=== PATIENT | male | born 1960 | race Hispanic/Latino ===

== ENCOUNTER 2017-12-08 14:48 | Observation (INO) | payer SELFPAY ==
[2017-12-08 15:31] LABS: #Basophils 0.1 thou/uL (0.0-0.2); #Lymphocytes 1.8 thou/uL (1.20-3.40); #Monocytes 0.8 thou/uL (0.11-0.59); #Neutrophils 11.4 thou/uL (1.40-6.50); %Basophils 0.5 % (0.0-1.0); %Eosinophils 0.3 % (0.0-10.0); %Lymphocytes 12.6 % (21.0-51.0); %Monocytes 5.4 % (0.0-10.0); %Neutrophils 81.1 % (42.0-75.0); Hemoglobin 16.5 g/dL (14.0-18.0); Mean Corpuscular HGB CONC 35.4 g/dL (32.0-36.0); Mean Corpuscular Hemoglobin 30.6 pg (27.0-31.0); Mean Corpuscular Volume 86.6 fL (78.0-98.0); Mean Platelet Volume 8.6 fL (7.4-10.4); Platelet Count 225 thou/uL (130-400); RBC Distribution Width 12.5 % (11.5-14.5); Red Blood Cell (RBC) Count 5.38 mill/uL (4.70-6.10)
[2017-12-08] MEDS ORDERED: Glycopyrrolate 0.2 MG/ML 5 ML SYRINGE ONE (15:38)
[2017-12-08] MEDS ORDERED: Dexamethasone 20 MG/5 ML VIAL ONE (15:38)
[2017-12-08] MEDS ORDERED: Ondansetron HCl/PF 4 MG/2 ML Vial ONE ×2 (15:38→16:37)
[2017-12-08] MEDS ORDERED: PROPOFOL 200 MG/20 ML VIAL ONE (15:38)
[2017-12-08] MEDS ORDERED: Lidocaine 1% PF 5 ML VIAL ONE (15:38)
--- NOTE | 2017-12-08 15:50 | RAD ---
AP VIEW OF THE CHEST: INDICATION: High-risk complaint with chest pain. IMPRESSION: No acute cardiopulmonary abnormality. COMMENTS: No comparisons are available. The lungs are clear. No acute osseous abnormality is evident. Heart size is within normal limits. POS: [facility]
[2017-12-08 15:55] LABS: ALT (SGPT) 23 U/L (8-55); AST (SGOT) 16 U/L (5-34); Albumin 4.4 g/dL (3.5-5.0); Alkaline Phosphatase 62 U/L (40-150); Anion Gap 14 mmol/L (10-20); BUN (Urea Nitrogen) 12 mg/dL (8.4-25.7); Bilirubin, Total 0.4 mg/dL (0.2-1.2); CK (CPK) 75 U/L (30-200); Calc. Creatinine Clearance 0 mL/min (70-130); Calcium 9.5 mg/dL (7.8-10.44); Carbon Dioxide 24 mmol/L (22-29); Chloride 105 mmol/L (98-107); Estimated GFR-MDRD 77; Globulin 3.1 g/dL (2.4-3.5); Glucose 213 mg/dL (70-105); Potassium 3.8 mmol/L (3.5-5.1); Protein, Total 7.5 g/dL (6.0-8.3); Sodium 139 mmol/L (136-145)
[2017-12-08 15:58] LABS: CKMB 0.7 ng/mL (0-6.6); Troponin I Less than 0.010 ng/mL (< 0.028)
--- NOTE | 2017-12-08 18:15 | ULT ---
RIGHT UPPER QUADRANT ULTRASOUND: History: Abdominal pain. FINDINGS: The liver is mildly enlarged measuring 19 - 20 cm. The liver is very heterogeneous. There is no focal mass seen although an infiltrate process in the liver cannot be excluded. At least one shadowing gallstone is seen in the gallbladder neck. There is evidence of echogenic slud ge layering in the gallbladder. No evidence of gallbladder wall thickening or edema. The common duct is normal caliber at 3 mm. Visualized pancreas is unremarkable although the pancreatic tail is obscur ed. The right kidney is imaged and appears unremarkable. IMPRESSION: 1. Hepatomegaly with very heterogeneous liver. Liver lesions and infiltrative process in the liver ar e not excluded on this study. Chronic liver function test. 2. Cholelithiasis. POS: [facility]
[2017-12-08] MEDS ORDERED: Ketorolac Tromethamine 30 MG/ML VIAL ONE (19:38)
[2017-12-08] MEDS ORDERED: Bupivacaine/Epinephrine 0.25% 30 ML VIAL ONE (20:53)
[2017-12-08] MEDS ORDERED: Fentanyl 100 MCG/2 ML VIAL ONE ×4 (21:01→23:50)
--- NOTE | 2017-12-08 21:12 | HP ---
DATE OF ADMISSION: 12/08/2017 HISTORY OF PRESENT ILLNESS: Ms. Landry is a 56-year-old man who presented today with a compl aint of 10/10 postprandial right upper quadrant to epigastric abdominal pain. The pain started appro ximately 0700 hours following breakfast consisting of some fried egg and beans. Pain is described as sharp transiently radiating to the back. The pain was associated with multiple episodes of nausea a nd nonbilious emesis. The patient reported some chills, but no fever. He denies any change in his b [employer] habits. PAST MEDICAL HISTORY: Pertinent for type 2 diabetes mellitus. PAST SURGICAL HISTORY: Pertinent for left inguinal herniorrhaphy. SOCIAL HISTORY: He lives independently. Patient is employed as light truck driver in the [employer] . He smokes 1 pack of cigarettes per day for over 20 years. He denies any ethanol or illicit drug a buse. FAMILY HISTORY: Notable for brother with diabetes mellitus and hypertension. His mother from c omplications of liver carcinoma. He denies any family history of heart disease. PREHOSPITAL MEDICATIONS: Metformin 1000 mg p.o. b.i.d. ALLERGIES: Patient denies any known drug allergies. REVIEW OF SYSTEMS: A 10-point review of systems is essentially unremarkable except for as stated in past medical history and chief complaint. PHYSICAL EXAMINATION: GENERAL: This reveals a 56-year-old normally developed man who is otherwise coherent and interactive and appears stated age. The patient is alert and oriented x3, appears to be in severe acute distres s secondary to abdominal pain. VITAL SIGNS: Includes blood pressure 135/80, pulse is 85, respiratory rate is 22, oxygen saturation 97% on room air. HEENT: Reveals normocephalic and atraumatic. Pupils are equal, round, and reactive to light and acc ommodation. Extraocular muscles are intact bilaterally. No sclerae icterus is present. Oral mucosa is pink and moist. No lesions are noted. NECK: Supple. No palpable lymphadenopathy or thyromegaly present. HEART: Reveals regular rate and rhythm, no murmurs or gallops auscultated. LUNGS: Clear to auscultation bilaterally. Breathing regular and unlabored. ABDOMEN: Soft and obese. He has right upper quadrant tenderness to palpation with a positive Jaimes sign. Liver and spleen are otherwise nonpalpable below costal margin. EXTREMITIES: Reveals 2+ radial and pedal pulses bilaterally. No ankle edema is present. NEUROLOGIC: Reveals no focal deficits present. PERTINENT LABORATORY DATA: Include a CBC with 14,000 white blood cells, hemoglobin and hematocrit 16 .5 and 46.6 respectively. Platelet count is 225,000. Metabolic profile: Sodium 139, potassium 3.8, chloride is 105, bicarbonate is 24, BUN 12, creatinine is 1.01, glucose is 213. Total bilirubin 0.4 , AST and ALT 16 and 23 respectively. Serum lipase is normal at 23. I have personally reviewed the abdominal ultrasound, which reveals hepatomegaly with gallbladder and intraluminal gallstones. There is a solitary stone impacted in gallbladder neck. No pericholecystic fluid or gallbladder wall thickening is seen. Common bile duct is normal in diameter for this patie nt's age at 3 mm. IMPRESSION: 1. Acute cholecystitis with cholelithiasis. 2. Hepatomegaly and abnormal heterogeneous echogenicity of the liver. 3. Given this patient's strong family history of liver carcinoma, we will obtain further image studi es and consider percutaneous liver biopsy if there is any suspicious presentation preoperatively. Above findings and plan has been discussed with the patient who indicates understanding of informatio n given. I have answered his questions.
[2017-12-08] MEDS ORDERED: Promethazine HCl 25 MG/ML VIAL SLOW IVP PRN (22:24)
[2017-12-08] MEDS ORDERED: Promethazine HCl 25 MG/ML VIAL IM PRN ×2 (22:24→22:57)
[2017-12-08] MEDS ORDERED: Meperidine HCl/PF 25 MG/ML VIAL SLOW IVP PRN (22:24)
[2017-12-08] MEDS ORDERED: Ondansetron HCl/PF 4 MG/2 ML Vial IVP PRN ×2 (22:24→22:57)
[2017-12-08] MEDS ORDERED: Dextrose 5% in Water 1,000 ML IV PRN (22:57)
[2017-12-08] MEDS ORDERED: Insulin Regular 300 UNITS/3 ML VIAL SC PRN (22:57)
[2017-12-08] MEDS ORDERED: Ketorolac Tromethamine 30 MG/ML VIAL IVP PRN (22:57)
[2017-12-08] MEDS ORDERED: Dextrose 50% Abboject 50 ML SYRINGE SLOW IVP PRN (22:57)
[2017-12-08] MEDS ORDERED: Calcium Carbonate 500 MG ChewTAB PO PRN (22:57)
[2017-12-08] MEDS ORDERED: Mag-Al 1200 mg/1200 mg/30 ML UDCUP PO PRN (22:57)
[2017-12-08] MEDS ORDERED: hydrALAZINE 20 MG/ML VIAL SLOW IVP PRN (22:57)
[2017-12-08] MEDS ORDERED: traMADol HCl 50 MG TAB PO PRN (23:03)
[2017-12-09] MEDS: Acetaminophen 500 MG TAB PO SCH ×4 (00:41→19:19)
[2017-12-09] MEDS: traMADol HCl 50 MG TAB PO PRN ×3 (00:41→21:58)
[2017-12-09 00:51] VITALS: BMI 34.7
--- NOTE | 2017-12-09 03:10 | OP ---
DATE OF OPERATION: 12/08/2017 PREOPERATIVE DIAGNOSIS: Acute cholecystitis with cholelithiasis. POSTOPERATIVE DIAGNOSIS: Acute cholecystitis with cholelithiasis. OPERATION PERFORMED: Laparoscopic cholecystectomy. SURGEON: Dr. Raphael Reynolds. ANESTHESIA: General endotracheal. ESTIMATED BLOOD LOSS: 10 mL FLUIDS GIVEN: 1300 mL crystalloids. SPONGE AND INSTRUMENT COUNT: Certified as correct x2. COMPLICATIONS: None apparent at the time of operation. INDICATIONS FOR PROCEDURE: A 56-year-old man presented with recurrent epigastric right uppe r quadrant abdominal pain. Clinical and radiographic examination was consistent with acute cholecyst itis with cholelithiasis for which patient was brought to the operating room for cholecystectomy. Findings are consistent with markedly dilated gallbladder in the usual anatomic location partially en cased by omental adhesions. DESCRIPTION OF PROCEDURE: Informed consent was obtained from the patient who was brought to the oper ating room and placed in supine position. Following general anesthesia, abdomen was sterilely preppe d and draped in usual fashion. The skin below the umbilicus was infiltrated with 0.25% Marcaine with epinephrine. A small curvilinear infraumbilical incision was made using an 11 scalpel. Umbilical s talk grasped with Shonna's and elevated. Veress needle was inserted through this incision and placed in the peritoneal cavity through which the abdomen was insufflated with 3 liters of CO2 gas. Intraa bdominal pressure 1 mmHg. Following abdominal insufflation, Veress needle was removed, 5 mm trocar i ntroduced using the Visiport under laparoscopy. Laparoscopy further revealed gallbladder in the usua l anatomic location partially encased by omental adhesions. Under laparoscopy, a 12-mm epigastric an d two 5 mm right lateral subcostal ports were placed after the overlying skin was infiltrated with 0. 25% Marcaine with epinephrine and appropriate incision was made. The patient was placed in the rever se Trendelenburg position, rotated to his left. I introduced the [place] dissector with cautery to take down omental adhesions from the gallbladder. I attempted to grasp the gallbladder with a Dropmysite ge grasper from the right lateral subcostal port. The gallbladder was markedly distended and torqued . I then used Endo suction catheter with cautery to perform a cholecystostomy at the dome of the gal lbladder, evacuating a large amount of white bile. Gochikuru grasper was then used to grasp the fundus of the gallbladder which was elevated cephalad. S econd grasper was introduced through the right medial subcostal port was applied at the Milian's zina ch which was retracted laterally. Cystic duct was carefully dissected free from surrounding structur es and divided between clips. Two clips applied proximally and one clip at the junction of the cysti c duct and gallbladder. The cystic artery divided between clips in a similar fashion. Gallbladder i tself was removed from the liver bed using cautery. Gallbladder was delivered of the abdominal cavit y using an EndoCatch. Operative site was irrigated with saline, noting good hemostasis in place. Fa scia of the epigastric port was closed using 0 Vicryl suture and Endo closure device under laparoscop y. Abdomen was desufflated. All ports and instruments removed and accounted for. Skin incisions cl osed using 4-0 Monocryl suture in subcuticular fashion. Laparoscopy reveals no visible abnormality w ith respect to the liver as previously described in the abdominal ultrasound. Therefore, I saw no re ason to obtain biopsy at this time. Pictures of the liver were taken and forms part of this patient' s medical records. Patient tolerated the operation without any apparent complication and was returne d to recovery room in satisfactory condition.
[2017-12-09] MEDS: Lactated Ringer's 1,000 ML IV SCH ×3 (04:04→19:27)
[2017-12-09 06:11] LABS: ALT (SGPT) 94 U/L (8-55); AST (SGOT) 71 U/L (5-34); Albumin 3.9 g/dL (3.5-5.0); Alkaline Phosphatase 58 U/L (40-150); Bilirubin, Direct 0.2 mg/dL (0.1-0.3); Bilirubin, Total 0.5 mg/dL (0.2-1.2); Protein, Total 6.5 g/dL (6.0-8.3)
[2017-12-09] MEDS: Famotidine 20 MG TAB PO SCH ×2 (08:52→21:57)
[2017-12-09] MEDS ORDERED: Famotidine/PF 20 mg/2ml Vial SLOW IVP SCH (09:00)
[2017-12-09] MEDS ORDERED: Prevnar 13-Val Conj/PF 0.5 ML SYRINGE IM ONE (09:00)
[2017-12-09] MEDS: Enoxaparin Sodium 40 MG/0.4 ML SYRINGE SC SCH (10:10)
[2017-12-09] MEDS ORDERED: ISOVUE-370 76%-LOCM 1 ML ONE (14:42)
--- NOTE | 2017-12-09 19:07 | CT ---
CT ABDOMEN WITH AND WITHOUT IV CONTRAST: 12/09/2017 HISTORY: Abnormal liver function tests. Abnormal previous liver ultrasound examination. Hepatomegaly. COMPARISON: Right upper quadrant ultrasound on 12/08/2017. FINDINGS: There are linear and parenchymal changes at each lung base, probably related to bibasilar atelectasis . There is stranding of the subcutaneous soft tissues in the right upper quadrant and at the midline wi th subcutaneous gas present, as well as a few scattered punctate foci of free intraperitoneal gas. T hese findings are likely related to recent post cholecystectomy changes. Surgical clips are seen in the gallbladder fossa. There is no fluid or fluid collection seen in the gallbladder fossa. The liver demonstrates diffuse diminished attenuation, which has the appearance most suggestive of di ffuse fatty infiltration, with mild focal fatty sparing adjacent to the gallbladder fossa. There is no focal hepatic mass seen, and the liver does not demonstrate heterogeneity on this exam. The liver is enlarged, measuring 21 cm in craniocaudal dimension. The spleen, pancreas, and bilateral adrenal glands demonstrate a normal CT appearance. Subcentimeter , eht-lafwd-ne-characterize, hypodense lesions are seen at the inferior pole of each kidney. The abdominal aorta is normal in caliber. No free fluid, fluid collection, or lymphadenopathy is seen in the abdomen or pelvis. Mild degenerative changes are seen involving the lower lumbar spine. There are bilateral pars defect s at L5 with grade 1 anterolisthesis of L5 on S1. IMPRESSION: 1. Evidence of cholecystectomy. There are punctate foci of gas seen within the abdomen, likely attr ibutable to recent cholecystectomy. Clinical correlation is recommended. 2. Hepatomegaly with diffuse fatty infiltration of the liver and focal fatty sparing adjacent to the gallbladder fossa. 3. Bibasilar atelectasis. 4. Subcentimeter, mif-woueg-gq-characterize, hypodense lesions in each kidney. 5. No fluid or fluid collection is seen in the gallbladder fossa. POS: [facility]
[2017-12-10] MEDS: Acetaminophen 500 MG TAB PO SCH ×4 (00:41→17:22)
--- NOTE | 2017-12-10 04:32 | PRG ---
DATE OF SERVICE: 12/09/2017 SUBJECTIVE: The patient is hospital day #2, postop day #1, status post laparoscopic cholecystectomy. The patient tolerated this procedure well. Of note, the ultrasound showed a questionable lesion on his liver though under laparoscope, the liver appeared unremarkable. Overnight, the patient had no issues. He tolerated a diet and his pain was controlled. PHYSICAL EXAMINATION: VITAL SIGNS: Temperature is 97.7, heart rate 98, blood pressure 112/76, respirations 18, oxygen satu ration 96% on room air. GENERAL: The patient is resting comfortably in bed, appears in no distress. HEENT: Unremarkable. LUNGS: Clear to auscultation bilaterally with good inspiratory and expiratory effort. HEART: Regular rate and rhythm. ABDOMEN: Soft, flat with minimal tenderness. His surgical sites are clean, dry, and intact. EXTREMITIES: Neurovascularly intact x4. LABORATORY DATA: This morning show a total bilirubin of 0.5, direct bilirubin 0.2, AST 71, ALT 94, a lkaline phosphatase 58. There are no radiographs to review this morning. ASSESSMENT AND PLAN: 1. Status post acute cholecystitis with cholelithiasis, status post laparoscopic cholecystectomy. 2. Hepatomegaly and abnormal heterogeneous echogenicity of the liver. The plan will be to continue supportive care. We will order AFP and CEA. We will consult GI to eval uate the patient and discussed further workup to include possible CT evaluation of his liver and othe r tests as indicated by GI. The evaluation and examination were done with Dr. Reynolds this morning and he discussed this case with Dr. Sepulveda.
[2017-12-10 05:14] LABS: Prothrombin Time 13.1 SEC (12.0-14.7)
[2017-12-10 05:35] LABS: Cardiac Risk 2.9 (Less than 4.5)
[2017-12-10 05:46] LABS: Ferritin 316.89 ng/mL (22-322)
[2017-12-10 06:00] LABS: HBCM Index 0.06 S/CO (0-0.79); HBSAg Index 0.18 S/CO (0-0.99); Hep A IgM AB Non-Reactive (NonReactive); Hep A IgM S/CO 0.19 S/CO (0-0.79); Hep B Surf Ag Non-Reactive S/CO (NonReactive); Hep C IgG Ab Non-Reactive (NonReactive); Hep C Index 0.14 S/CO (0-0.79); Hepatitis B Core IGM Abs Non-Reactive (NonReactive)
[2017-12-10] MEDS: Lactated Ringer's 1,000 ML IV SCH ×2 (06:50→08:29)
[2017-12-10] MEDS: Famotidine 20 MG TAB PO SCH (08:28)
--- NOTE | 2017-12-10 09:46 | CON ---
DATE OF CONSULTATION: 12/09/2017 REASON FOR CONSULTATION: Hepatomegaly. HISTORY OF PRESENT ILLNESS: Mr. Landry is a 56-year-old gentleman who presented to the emergency room yesterday with complaints of some chest pain, which began after eating eggs for breakfast, ultimatel y came to emergency room with some gallstones and white count of 14,000. His AST and ALT were elevat ed at 71 and 94. His other liver enzymes were normal and lipase was normal. Glucose is 213. Ultras ound revealed hepatomegaly and heterogeneous appearing liver. His gallbladder was removed. General Surgery consult to me after surgery to evaluate him for hepatomegaly as they found that the history h is mother had cancer that started in the liver and now moved to allover of his body. The patient is not aware of any other family history of liver disease or any family history of hepatitis. The patie nt did drink heavy alcohol until about 20 years ago and states he does not drank since then. Present ly, complains of no pain or symptoms. He reports he is going home today and he will go back to the [facility] where he lives. PAST MEDICAL HISTORY: Type 2 diabetes, high cholesterol, and hypertension. PAST SURGICAL HISTORY: Left inguinal hernia repair, cholecystectomy today. 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 Oswaldo sandhu smokes a pack of cigarettes for over 20 years. Denies any alcohol use presently or drug abuse. De nies any prior history of IV drug use. FAMILY HISTORY: His brother had diabetes and hypertension. His mother from complications of a cancer in liver. It is unclear if this is a primary cancer from talking to him. It does not seem to be underlying liver disease. MEDICATIONS AT HOME: Metformin 1000 mg twice a day, he is on no other medicines at home. ALLERGIES: Unknown. REVIEW OF SYSTEMS: Negative for weight loss, fever, chills, headaches, rashes, seizures, depression, myalgias, arthralgias, focal weakness, dysphagia, odynophagia, melena, hematochezia or hematemesis, weight loss, abdominal pain. No prior history of hepatitis or liver disease. No dysuria, frequency, urgency. No shortness of breath, cough, wheezing. Negative for orthopnea, dyspnea, chest pain, pal pitations, dyspnea on exertion. PHYSICAL EXAMINATION: VITAL SIGNS: Temperature is 97, pulse 69, blood pressure 118/77. LUNGS: Clear. HEART: Regular without clicks or murmurs. ABDOMEN: Soft and nontender. Liver is enlarged 4 cm below the right costal margin. LABORATORY DATA: As per HPI. ASSESSMENT AND PLAN: 1. Status post cholecystectomy for cholecystitis. 2. Abnormal LFTs with AST greater than ALT and hepatomegaly. This is likely related to fatty liver from his diabetes and hyperlipidemia. We will rule out other underlying causes with serologic evalua tion, which has been ordered in the computer or entry with regard to the hepatomegaly and poor visual ization of the liver and family history of malignancy, we could image liver further as an outpatient with a CT scan.
[2017-12-10] MEDS: Enoxaparin Sodium 40 MG/0.4 ML SYRINGE SC SCH (12:39)
[2017-12-10 16:08] VITALS: BP 142/89; TEMP 97.6
--- NOTE | 2017-12-11 00:18 | DIS ---
DATE OF ADMISSION: 12/08/2017 DATE OF DISCHARGE: 12/10/2017 ADMITTING AND DISCHARGE PHYSICIAN: Raphael Reynolds DO CERTIFIED MEDICAL ASSISTANT: Dr. Jakub Sepulveda with Gastroenterology. ADMITTING DIAGNOSES: 1. Acute cholecystitis with cholelithiasis. 2. Hepatomegaly with abnormal ultrasound. 3. Family history of liver cancer. DIAGNOSES ON DISCHARGE: 1. Acute cholecystitis with cholelithiasis. 2. Hepatomegaly with abnormal ultrasound. 3. Family history of liver cancer. OPERATIONS AND PROCEDURES: Laparoscopic cholecystectomy on 12/08/[address] Reynolds. Please see a [facility] dictation for operative report. PERSONAL HISTORY AND HOSPITAL COURSE: A 56-year-old morbidly obese man presented with abdominal pain . Clinical radiographic examination was consistent with acute cholecystitis, cholelithiasis for whic h patient underwent an uneventful laparoscopic cholecystectomy on 12/08/2017. Given abnormal finding s on the abdominal ultrasound with regards to the liver and family history of liver carcinoma, Gastro enterology was consulted to evaluate the patient. The patient is seen by Dr. Jakub Sepulveda and some laboratory studies were initiated. Postoperat ively, the patient has done well. By postop day #2, he is ambulating with minimal difficulty. Pain is adequately controlled on analgesics. The patient is tolerating general diet, having normal bowel and urinary function. Incisional wounds are intact, clean, and dry. He has no peritoneal signs on e xamination. The patient has maximized hospital benefit and will be discharged home today with the following instr uctions: DISCHARGE INSTRUCTIONS: 1. He follows up with Dr. Sepulveda in his clinic on an outpatient basis, appointment will be arranged through Dr. Sepulveda' office. 2. The patient follows up with me in the Surgery Clinic in 2 weeks. 3. He is to avoid weightlifting in excess of 20 pounds until he has been released by me. He is to r esume all prehospital medications as prescribed by his primary care physician. Additionally, I have given him a prescription for tramadol 50 mg #50 to be taken 1-2 p.o. q.6 hours p .r.n. pain. The patient has been instructed to call me with any questions or problems including exacerbation of a bdominal pain, fever in excess of 101 degrees Fahrenheit, or any intolerance to oral intake. The pat ient indicates understanding of the information I have given him today. I answered his questions. T he patient has expressed gratitude for the care and nurturing during this hospitalization and surgery .
[2017-12-11 12:03] LABS: ANA Symphony (Qualitative) Negative (Negative); EliA Vaculitis New Method **** NEW METHOD ****; Mitochondrial Ab Less than 0.5 U/mL (<4 Negative); dsDNA IgG Antibody Less than 0.5 IU/mL (<10 Negative)
[2017-12-12 15:44] LABS: A1 Antitrypsin Phenotype Inter MS (.); Alpha-1-Antitrypsin 141 mg/dL (90-200); Smooth Muscle Total ABS 8 Units (0-19)
--- NOTE | 2017-12-14 11:46 | EKG ---
Test Reason : Blood Pressure : / mmHG Vent. Rate : 062 BPM Atrial Rate : 062 BPM P-R Int : 146 ms QRS Dur : 100 ms QT Int : 414 ms P-R-T Axes : 017 054 059 degrees QTc Int : 420 ms Normal sinus rhythm Normal ECG Confirmed by AILEEN WATERS DO ([id number]), film or videotape editor WAQAS GALVAN ([id number]) on 12/14/2017 11:46:28 AM Referred By: Confirmed By:AILEEN WATERS DO
== END 2017-12-10 19:10 | disposition home or self-care (01) ==
LOC: ERS 14:48 → SDC/OP 21:27 → SURG B 22:57
PROVIDERS: ADMIT Surgery; ATTEND Surgery
PROC: 0FT44ZZ Resection of Gallbladder, Percutaneous Endoscopic Approach (ICD-10-PCS; principal; 2017-12-08)
DX: K80.12 Calculus of gallbladder with acute and chronic cholecystitis without obstruction (principal); E11.9 Type 2 diabetes mellitus without complications; I10 Essential (primary) hypertension; R16.0 Hepatomegaly, not elsewhere classified; E78.00 Pure hypercholesterolemia, unspecified; F17.210 Nicotine dependence, cigarettes, uncomplicated; Z80.0 Family history of malignant neoplasm of digestive organs; Z79.84 Long term (current) use of oral hypoglycemic drugs
CPT/HCPCS: 36415; 36416; 51701; 71045; 74170; 76705; 80053; 80061; 80074; 80076; 82103; 82104; 82105; 82378; 82550; 82553; 82728; 83516; 83550; 83690; 84484; 85025; 85610; 86038; 86225; 88304; 90471; 90732; 93005; 94640; 96361; 96372; 96374; 96375; 96376; A4216; G0009; G0378; J1100; J1650; J1885; J2001; J2270; J2405; J2704; J3010; J7620